=== PATIENT | female | born 1930 | race Caucasian/White ===

== ENCOUNTER 2017-09-17 02:22 | Inpatient (IN) ==
[2017-09-17] MEDS ORDERED: Ondansetron 4 MG/2 ML VIAL IVP ONE (03:31)
[2017-09-17] MEDS ORDERED: 0.9 % Sodium Chloride 1,000 ML IVC ONE (03:31)
--- NOTE | 2017-09-17 03:33 | Emergency Department Note ---
Disposition Clinical Impression: Nausea, Small bowel obstruction Constipation Qualifiers: Constipation type: unspecified constipation type Qualified Code(s): K59.00 - Constipation, unspecified Disposition: Admitted As Inpatient Condition: Fair Referrals: Virgil Schneider DO [Primary Care Provider] - Forms: ED Satisfaction Letter, Work/School Release Time of Disposition: 05:26 General Adult HPI - General Chief complaint: ED Abdominal Pain Stated complaint: Abdominal Pain Time Seen by Provider: 09/17/17 02:47 Source: patient, family Limitations: no limitations Nursing Notes Reviewed: Yes Vital Signs Reviewed: Yes - History of Present Illness HPI Narrative: Patient is an 86-year-old female that presents emergency department for abdominal pain, nausea and constipation. Patient states that she was trying to have a bowel movement this evening and used straining and developed worsening of her abdominal pain. Patient also states that she has been having urinary incontinence. Family states that she was seen for the similar complaints on and at outside facility. States that once she had a bowel movement her symptoms had improved. Family states that the urinary incontinence is not new that this is been ongoing for months. They deny any blood in the stool. He also states that she has been very anxious lately due to the urinary incontinence and constipation. Pain Scale: 8 - Related Data Allergies Allergy/AdvReac Type Severity Reaction Status Date / Time Sulfa (Sulfonamide Allergy See Verified 09/17/17 02:24 Antibiotics) Comments All systems ED: reviewed and negative except as stated. Constitutional: Denies: fever, chills Cardiovascular: Denies: chest pain Respiratory: Denies: dyspnea Gastrointestinal: Reports: abdominal pain, nausea, constipation. Denies: vomiting Genitourinary: Reports: other (Urinary incontinence) Past Medical History - Past Medical History Medical history: Reports: asthma, CVA, diabetes, hyperlipidemia, hypertension Psychiatric history: Reports: no psych history - Social History Smoking Status: Never smoker Smokeless Tobacco Status: No Alcohol use: Reports: none Drug use: Reports: none Physical Exam - General Limitations: no limitations General appearance: alert, in no apparent distress - Head Head exam: atraumatic, normocephalic - Eye Eye exam: Present: normal appearance, EOMI - Neck Neck exam: Present: normal inspection, full ROM, trachea midline - Respiratory Respiratory exam: Present: normal lung sounds bilaterally. Absent: respiratory distress, wheezes - Cardiovascular Cardiovascular exam: Present: regular rate, normal rhythm, normal heart sounds, +S1, +S2 - Abdominal Exam Abdominal exam: Present: soft, tenderness (Right-sided), normal bowel sounds - Neurological Exam Neurological exam: Present: alert, oriented X3 - Psychiatric Psychiatric exam: Present: normal affect, normal mood - Skin Skin exam: Present: warm, dry, intact Course - Reevaluation(s) Reevaluation #1: I called and spoke with the on-call surgeon Dr. Delgadillo and she has accepted the patient to their service. The patient will be admitted to the hospital at this time for further evaluation and management of her small bowel injection. Dr. Delgadillo did request an NG tube be placed prior to being admitted to the hospital. This will be done in the emergency department prior to admission. Time: 05:23 Vital Signs Temperature 97.6 F 09/17/17 02:24 Pulse Rate 95 09/17/17 02:24 Respiratory Rate 18 09/17/17 02:24 Blood Pressure 181/71 09/17/17 02:24 O2 Sat by Pulse Oximetry 95 09/17/17 02:24 Temperature 97.6 F 09/17/17 02:24 Pulse Rate 77 09/17/17 04:52 Respiratory Rate 18 09/17/17 04:52 Blood Pressure 155/64 09/17/17 04:52 O2 Sat by Pulse Oximetry 97 09/17/17 04:52 Oxygen Delivery Oxygen Delivery Room Air Medical Decision Making - [facility] Narrative Medical decision making narrative: Due to the patient presenting with abdominal pain and possible constipation we will obtain a CBC, BMP, urinalysis and a CT scan of the abdomen and pelvis. CT scan showed a small bowel structure with a transition point in the right lower quadrant. Urinalysis did not show any infection. Patient did have a mild anemia of 10.9. Remainder of her laboratory testing was unremarkable. I called and spoke with the on-call surgeon she has accepted the patient to their service with the request of a NG tube being placed. This will be done prior to the patient being admitted. I informed the patient and family member that there was a small bowel obstruction and the patient will need to be admitted for further evaluation and management. They were in agreement with this. Patient will be admitted to the hospital at this time. Patient will be given 1mg of ativan for the NG being placed. - Medical Records Medical records reviewed: Yes I reviewed the patient's medical records. - Lab Data Lab results reviewed: Yes I reviewed the patient's lab results. Result diagrams: 09/17/17 04:02 09/17/17 04:02 Lab Results 09/17/17 09/17/17 09/17/17 Range/Units 04:02 04:02 04:50 WBC 5.9 (4.3-11.1) K/mcL RBC 3.60 L (3.82-4.97) M/mcL Hgb 10.9 L (11.5-15.4) g/dL Hct 33.7 L (35.3-44.9) % MCV 93.6 (83.0-100.0) fL MCH 30.3 (28.0-33.3) pg MCHC 32.3 (31.6-35.5) g/dL RDW 14.8 H (11.5-14.5) % Plt Count 174 (140-400) K/mcL MPV 10.4 (9.4-12.4) fL Immature Gran % 0.3 (0-4) % Seg Neutrophils % 67.9 % Lymphocytes % 22.3 % Monocytes % 7.3 % Eosinophils % 1.7 % Basophils % 0.5 % Neutrophils # 4.0 (1.6-8.9) K/mcL Lymphocytes # 1.3 (0.6-4.6) K/mcL Monocytes # 0.4 (0.0-1.3) K/mcL Eosinophils # 0.1 (0.0-0.6) K/mcL Basophils # 0.0 (0.0-0.2) K/mcL Sodium 139 (136-145) mEq/L Potassium 4.1 (3.5-5.1) mEq/L Chloride 105 (98-107) mEq/L Carbon Dioxide 24 (23-29) mEq/L BUN 23 (8-23) mg/dL Creatinine 0.86 (0.60-1.20) mg/dL Est GFR ( Amer) > 60 (> 60) Est GFR (Non-Af Amer) > 60 (> 60) BUN/Creatinine Ratio 27 H (6-26) Glucose 141 H (70-105) mg/dL Calculated Osmolality 294 (280-300) Calcium 9.0 (8.6-10.3) mg/dL Urine Color Yellow (Yellow) Urine Clarity Clear (Clear) Urine pH 7.0 (5.0-8.0) pH Units Ur Specific [place] 1.010 (1.010-1.025) Urine Protein Negative (Neg-Trace) mg/dL Urine Glucose (UA) Normal (Normal) mg/dL Urine Ketones Negative (Negative) mg/dL Urine Blood Negative (Negative) Urine Nitrite Negative (Negative) Urine Bilirubin Negative (Negative) Urine Urobilinogen Normal (Normal) mg/dL Ur Leukocyte Esterase Negative (Negative) Ur Culture Indicated? NO (NO) - Radiology Data Radiology results reviewed: Yes I reviewed the patient's radiology results. Abdomen/Pelvis CT 09/17/17 03:29 IMPRESSION: Findings of a mechanical small bowel obstruction with suspected transition point in the right lower quadrant. D/ / Rick Belcher / Rick Belcher Interpreting Provider: Rick Belcher
[2017-09-17 04:21] LABS: Basophils % 0.5 %; Eosinophils # 0.1 K/mcL (0.0-0.6); Eosinophils % 1.7 %; Hematocrit 33.7 % (35.3-44.9); Hemoglobin 10.9 g/dL (11.5-15.4); Immature Granulocytes % 0.3 % (0-4); Lymphocytes # 1.3 K/mcL (0.6-4.6); Lymphocytes % 22.3 %; Mean Corpuscular HGB Conc 32.3 g/dL (31.6-35.5); Mean Corpuscular Hemoglobin 30.3 pg (28.0-33.3); Mean Corpuscular Volume 93.6 fL (83.0-100.0); Mean Platelet Volume 10.4 fL (9.4-12.4); Monocytes # 0.4 K/mcL (0.0-1.3); Monocytes % 7.3 %; Platelet Count 174 K/mcL (140-400); Red Cell Distribution Width 14.8 % (11.5-14.5); Segmented Neutrophils % 67.9 %
[2017-09-17 04:39] LABS: BUN/Creatinine Ratio 27 (6-26); Blood Urea Nitrogen 23 mg/dL (8-23); Carbon Dioxide 24 mEq/L (23-29); Chloride 105 mEq/L (98-107); Glucose 141 mg/dL (70-105); Osmolality,Calculated 294 (280-300); Potassium 4.1 mEq/L (3.5-5.1); Sodium 139 mEq/L (136-145); eGFR For African Americans > 60 (> 60); eGFR For Non-African Americans > 60 (> 60)
[2017-09-17 05:02] LABS: Bilirubin,Urine Negative (Negative); Blood,Urine Negative (Negative); Clarity,Urine Clear (Clear); Color,Urine Yellow (Yellow); Glucose,Urine (UA) Normal (Normal); Ketones,Urine Negative (Negative); Leukocyte Esterase,Urine Negative (Negative); Nitrite,Urine Negative (Negative); Protein,Urine Negative (Neg-Trace); Urobilinogen,Urine Normal (Normal)
--- NOTE | 2017-09-17 05:23 | Emergency Department Note ---
Disposition Clinical Impression: Nausea, Small bowel obstruction Constipation Qualifiers: Constipation type: other constipation type Qualified Code(s): K59.09 - Other constipation Disposition: Admitted As Inpatient Condition: Serious General Adult HPI - General Chief complaint: ED Abdominal Pain Stated complaint: Abdominal Pain Time Seen by Provider: 09/17/17 02:47 Source: patient, family Limitations: no limitations - History of Present Illness Pain Scale: 8 - Related Data Home Medications Medication Instructions Recorded Confirmed Amlodipine Besylate 10 mg PO DAILY 09/17/17 09/17/17 Buspirone HCl [Buspar] 5 mg PO TID 09/17/17 09/17/17 Clopidogrel [Plavix] 75 mg PO DAILY 09/17/17 09/17/17 OxyCODONE/APAP 7.5/325 [Percocet 1 tab PO Q6HR PRN 09/17/17 09/17/17 7.5/325 MG] Oxybutynin Chloride [Ditropan Xl] 10 mg PO DAILY 09/17/17 09/17/17 Pioglitazone HCl [Actos] 45 mg PO DAILY 09/17/17 09/17/17 Simvastatin [Zocor] 20 mg PO HS 09/17/17 09/17/17 metFORMIN [Glucophage] 500 mg PO DAILY 09/17/17 09/17/17 Allergies Allergy/AdvReac Type Severity Reaction Status Date / Time Sulfa (Sulfonamide Allergy See Verified 09/17/17 02:24 Antibiotics) Comments Constitutional: Denies: fever, chills Cardiovascular: Denies: chest pain Respiratory: Denies: dyspnea Gastrointestinal: Reports: abdominal pain, nausea, constipation. Denies: vomiting Genitourinary: Reports: other (Urinary incontinence) Past Medical History - Past Medical History Medical history: Reports: asthma, CVA, diabetes, hyperlipidemia, hypertension Psychiatric history: Reports: no psych history - Social History Smoking Status: Never smoker Smokeless Tobacco Status: No Alcohol use: Reports: none Drug use: Reports: none Physical Exam - General Limitations: no limitations General appearance: alert, in no apparent distress Course Vital Signs Temperature 97.6 F 09/17/17 02:24 Pulse Rate 95 09/17/17 02:24 Respiratory Rate 18 09/17/17 02:24 Blood Pressure 181/71 09/17/17 02:24 O2 Sat by Pulse Oximetry 95 05/08/18 02:24 Temperature 97.7 F 09/17/17 14:30 Pulse Rate 96 09/17/17 14:30 Respiratory Rate 16 09/17/17 14:30 Blood Pressure 147/84 09/17/17 14:30 O2 Sat by Pulse Oximetry 95 09/17/17 14:30 Oxygen Delivery Oxygen Delivery Room Air Medical Decision Making - Lab Data Result diagrams: 09/17/17 04:02 09/17/17 04:02 Lab Results 09/17/17 09/17/17 09/17/17 Range/Units 04:02 04:02 04:50 WBC 5.9 (4.3-11.1) K/mcL RBC 3.60 L (3.82-4.97) M/mcL Hgb 10.9 L (11.5-15.4) g/dL Hct 33.7 L (35.3-44.9) % MCV 93.6 (83.0-100.0) fL MCH 30.3 (28.0-33.3) pg MCHC 32.3 (31.6-35.5) g/dL RDW 14.8 H (11.5-14.5) % Plt Count 174 (140-400) K/mcL MPV 10.4 (9.4-12.4) fL Immature Gran % 0.3 (0-4) % Seg Neutrophils % 67.9 % Lymphocytes % 22.3 % Monocytes % 7.3 % Eosinophils % 1.7 % Basophils % 0.5 % Neutrophils # 4.0 (1.6-8.9) K/mcL Lymphocytes # 1.3 (0.6-4.6) K/mcL Monocytes # 0.4 (0.0-1.3) K/mcL Eosinophils # 0.1 (0.0-0.6) K/mcL Basophils # 0.0 (0.0-0.2) K/mcL Sodium 139 (136-145) mEq/L Potassium 4.1 (3.5-5.1) mEq/L Chloride 105 (98-107) mEq/L Carbon Dioxide 24 (23-29) mEq/L BUN 23 (8-23) mg/dL Creatinine 0.86 (0.60-1.20) mg/dL Est GFR ( Amer) > 60 (> 60) Est GFR (Non-Af Amer) > 60 (> 60) BUN/Creatinine Ratio 27 H (6-26) Glucose 141 H (70-105) mg/dL Calculated Osmolality 294 (280-300) Calcium 9.0 (8.6-10.3) mg/dL Urine Color Yellow (Yellow) Urine Clarity Clear (Clear) Urine pH 7.0 (5.0-8.0) pH Units Ur Specific [place] 1.010 (1.010-1.025) Urine Protein Negative (Neg-Trace) mg/dL Urine Glucose (UA) Normal (Normal) mg/dL Urine Ketones Negative (Negative) mg/dL Urine Blood Negative (Negative) Urine Nitrite Negative (Negative) Urine Bilirubin Negative (Negative) Urine Urobilinogen Normal (Normal) mg/dL Ur Leukocyte Esterase Negative (Negative) Ur Culture Indicated? NO (NO) Attestation Statement - Attestation Attestation: I examined this patient and my medical decision-making was reviewed with the Resident Physician. I agree with the documented findings, disposition and treatment plan as described except to the extent set forth below. Findings consistent with small bowel obstruction. We will place an NG tube. Admit to surgical services. Patient non-peritoneal at time of admission.
[2017-09-17] MEDS ORDERED: *HR* LORazepam 2 MG/ML VIAL IVP ONE (05:29)
[2017-09-17] MEDS ORDERED: Tetracaine/Benzocaine/Butamben 200MG/SPRAY (100SPY/BOT) MM ONE (05:31)
[2017-09-17] MEDS ORDERED: Naloxone 0.4 MG/ML INJ IVP PRN (07:41)
[2017-09-17] MEDS ORDERED: *HR* Metoprolol 5 MG/5 ML VIAL IVP PRN (07:41)
[2017-09-17] MEDS ORDERED: Ondansetron 4 MG/2 ML VIAL IVP PRN (07:41)
[2017-09-17] MEDS ORDERED: D5% in Water 1,000 ML IVC PRN (07:44)
[2017-09-17] MEDS ORDERED: Dextrose Gel 15 GM/37.5 ML TUBE PO PRN ×2 (07:44)
[2017-09-17] MEDS ORDERED: *HR* Dextrose 50 % in Water (Syg) 50 ML SYRINGE IVP PRN (07:44)
[2017-09-17] MEDS ORDERED: *HR* Metoprolol 5 MG/5 ML VIAL IVP SCH (07:45)
[2017-09-17] MEDS ORDERED: 0.9 % Sodium Chloride 1,000 ML IVC SCH (07:45)
--- NOTE | 2017-09-17 08:19 | General Surg History&Physical ---
<Umberto Kim - Last Filed: 09/17/17 16:51> Date of Encounter: 09/17/17 Time of Encounter: 08:13 Assessment and Plan (1) Small bowel obstruction Status: Acute Overall, patient appears relatively comparable and has overall benign abdominal exam. CT-abdomen demonstrates fecalization of small bowel, and a transition point with proximal SB distention. DDx includes adynamic ileus, mechanical SBO, primarily drug-induced fecal obstruction - NG tube in place with low pressure wall suction - NPO for time being - Antiemetics PRN - Analgesia PRN - qAM Lytes - Will likely need SB follow through - Colonoscopy may be warranted at some point of IP stay as well (2) Constipation Status: Acute Suspected drug induced vs. primary SBO. Plans as above. Qualifiers: Qualified Code(s): K59.00 - Constipation, unspecified (3) Urinary incontinence Status: Acute Given subacute nature and completely normal UA, doubt UTI. Likely related to distention secondary to SBO. Associated plans as above. Qualifiers: Urinary Incontinence type: unspecified incontinence Qualified Code(s): R32 - Unspecified urinary incontinence (4) Diabetes mellitus Status: Acute Accuchecks q6hr & LD-SSI Qualifiers: Diabetes mellitus type: type 2 Diabetes mellitus usp insulin use: without usp use Diabetes mellitus complication status: with unspecified complications Qualified Code(s): E11.8 - Type 2 diabetes mellitus with unspecified complications (5) Hypertension Status: Acute Monitor; Metoprolol 5mg PRN Qualifiers: Hypertension type: unspecified Qualified Code(s): I10 - Essential (primary ) hypertension (6) Chronic pain Status: Acute Routinely takes Oxycodone 7.5mg without concurrent use of stool softener or laxitive. No history of associated constipation. - Oxycodone oral conc 5mg SL q4h PRN & Morphine 5mg SL PRN Qualifiers: Chronic pain type: other chronic pain Qualified Code(s): G89.29 - Other chronic pain (7) DVT prophylaxis Status: Acute SCDs History of Present Illness Chief complaint: Constipation & Nausea HPI: Ms. Prabhakar is a 86 year old female with stated past medical history of HLP, HTN , DM 2 [id number], and chronic pain on regular opioid analgesia. Negative surgical history. Patient presented to the ED for worsening symptoms of constipation, bloating, nausea, and urinary incontinence all which have collectively been going on for about the past month and a half. Patient states has to strain to pass stools which have been dry and hard in quality. Within same time period, patient states has had urinary incontinence with no other urinary symptoms. Patient states provoking change was a worsening of pain yesterday while trying to have a bowel movement. Patient denies any vomiting, diarrhea, hematochezia, melena, hematuria, or dysuria. Patient denies any known historical difficulties with constipation despite chronic pain med use. Patient describes acute sensation as a diffuse pain/bloating discomfort the poorly localizes. Pain has not been focal, migratory, nor radiating. Abdominal discomfort is quantified as moderate. No associated anorexia. Of note, patient has no history of intra-abdominal surgeries and has never had a colonoscopy. No history of hypercoagulopathy, thromboembolic disease, or other bowel obstructions. Denies known history of cancer. Past Med Surg Social Fam HX - Past Medical History Attestation: Yes The following information was validated with the patient. Source: patient, obtained from family Medical history: asthma, CVA, diabetes, hyperlipidemia, hypertension Psychiatric history: no psych history, anxiety - Past Surgical History Surgical History: no surgical history - Social History Smoking Status: Never smoker Smokeless Tobacco Status: No Alcohol use: none Drug use: none - Family History Mother Adopted: [place]: Ingrid Travis Age: 71 Cause of : 71 Hx Family Cardiac Disorders: Yes Father History Unknown: Yes Adopted: [place]: Bhanu Merrill Cause of : Alcoholism Medications and Allergies Amlodipine Besylate 10 mg PO DAILY 09/17/17 [History] Buspirone HCl [Buspar] 5 mg PO TID 09/17/17 [History] Clopidogrel [Plavix] 75 mg PO DAILY 09/17/17 [History] OxyCODONE/APAP 7.5/325 [Percocet 7.5/325 MG] 1 tab PO Q6HR PRN 09/17/17 [History ] Oxybutynin Chloride [Ditropan Xl] 10 mg PO DAILY 09/17/17 [History] Pioglitazone HCl [Actos] 45 mg PO DAILY 09/17/17 [History] Simvastatin [Zocor] 20 mg PO HS 09/17/17 [History] metFORMIN [Glucophage] 500 mg PO DAILY 09/17/17 [History] 3 Allergy/AdvReac Type Severity Reaction Status Date / Time Sulfa (Sulfonamide Allergy See Verified 09/17/17 02:24 Antibiotics) Comments Review of Systems All systems PM: Denies notable weight change, fevers, chills, sweats, headache, visual disturbances, confusion, neck stiffness, chest pain, palpitations, cough, shortness of breath, vomiting, or pedal edema. General Surgery Exam Initial Vital Signs Temp Pulse Resp BP Pulse Ox 97.6 F 95 18 181/71 95 09/17/17 02:24 09/17/17 02:24 09/17/17 02:24 09/17/17 02:24 09/17/17 02:24 VITAL SIGNS: Reviewed. See [facility] GENERAL: alert and comfortably supine in bed. NG tube in place. HEENT: Normocephalic, PER, EOMi, oropharynx pink/moist, no JVD noted CV: RRR, no murmurs or gallops, no JVD RESPIRATORY: CTAB without wheezes, rales, or rhonchi ABD: hypoactive bowel sounds, soft, mildly tender, no rebound/guarding/rigidity , no peritoneal signs EXTREMITY: grossly normal motor function, no pedal edema, peripheral pulses 2+ b /l NEUROLOGIC EXAM: AOx3, obeys commands, no speech deficits. PSYCHIATRIC: normal mood and affect SKIN: no gross lesions, rashes, or skin changes Results - Labs 09/17/17 04:02 09/17/17 04:02 Abnormal lab results RBC 3.60 M/mcL (3.82-4.97) L 09/17/17 04:02 Hgb 10.9 g/dL (11.5-15.4) L 09/17/17 04:02 Hct 33.7 % (35.3-44.9) L 09/17/17 04:02 RDW 14.8 % (11.5-14.5) H 09/17/17 04:02 BUN/Creatinine Ratio 27 (6-26) H 09/17/17 04:02 Glucose 141 mg/dL (70-105) H 09/17/17 04:02 All other labs normal. <Irene Delgadillo L - Last Filed: 09/17/17 17:46> Date of Encounter: 09/17/17 Time of Encounter: 14:30 Assessment and Plan (1) Small bowel obstruction due to adhesions Status: Acute The assessment and plan as outlined above was discussed with the patient and/or family members who expressed understanding and agreement. All questions were answered. discussed with patient, her daughter and granddaughter that patient has a small bowel obstruction. we discussed conservative therapy for small bowel obstruction and potential for surgery to alleviate obstruction if conservative therapy fails. explained what an ngt was and what it accomplishes. daughter is upset that patient went for a period of time from when she was at home to when recieved orders for narcoticson the floor. Patient is upset and perseverates, stating she cannot take the ngt and wants it removed. They were offered viscous lidocaine and chloraseptic to help with the ngt discomfort and patients daughter then became upset that patient did not already have this offered. we discussed patients worsening constipation and that she has never had a colonoscopy and I asked patient if I could do a rectal exam. Patient stated I could do a rectal exam if her ngt was removed. Daughter then offered patient to have her ngt removed and do rectal. At persistence despite telling them this was not appropriate medical practice or our recommendation at the insistence of the patient and her daughter her ngt was removed. Patient then refused rectal exam.Daughter kept asking what would happen if she took patient home now. We discussed possible complications of taking her home with a persistent small bowel obstruction and told her she would be taking her against medical advice and daughter expressed that she understood that had Johnson, 3A nurse medical care manager speak with patient and her daughter regarding family complaints for their stay thus far. Family decided to leave [place] but refused to sign the paper. patient has chronic pain and has been treated with po narcotics (SL) and pain is well controlled, patient is not complaining of any pain (abdominal or otherwise) currently, only the ngt (2) Chronic pain Status: Chronic The assessment and plan as outlined above was discussed with the patient and/or family members who expressed understanding and agreement. All questions were answered. Qualifiers: Chronic pain type: other chronic pain Qualified Code(s): G89.29 - Other chronic pain (3) Constipation Status: Chronic The assessment and plan as outlined above was discussed with the patient and/or family members who expressed understanding and agreement. All questions were answered. Qualifiers: Constipation type: unspecified constipation type Qualified Code(s): K59.00 - Constipation, unspecified (4) Diabetes mellitus Status: Chronic The assessment and plan as outlined above was discussed with the patient and/or family members who expressed understanding and agreement. All questions were answered. 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 All questions were answered. Qualifiers: Hypertension type: essential hypertension Qualified Code(s): I10 - Essential (primary) hypertension History of Present Illness HPI: Ms. Prabhakar is a 86 year old female who for some time (unable to determine how long) has been having abdominal distention and pain. Prior to presenting to the ED patient had nausea and emesis. She has been having increasing constipation for several months now, patient has never had a colonoscopy. Patient has never had any abdominal surgery. She has had (she thinks) flatus today. CT scan shows sbo with transition point. Patient takes chronic pain medication for DJD/DDD and chronic back pain, she takes anxiety medication as well. She had some ativan earlier and is having some confusion at this time.Daughter and granddaughter are present in room with patient. Pt is complaining of the ngt bothering her throat and keeps stating she wants it removed. Past Med Surg Social Fam HX - Past Medical History Source: patient Medical history: asthma, diabetes, other (chronic pain) Review of Systems All systems PM: reviewed and no additional remarkable complaints except as stated All systems PM: The remainder of the systems were reviewed and are negative General Surgery Exam Initial Vital Signs Temp Pulse Resp BP Pulse Ox 97.6 F 95 18 181/71 95 09/17/17 02:24 09/17/17 02:24 09/17/17 02:24 09/17/17 02:24 09/17/17 02:24 - General physical appearance well developed, well nourished, no distress - Eyes PERRL, normal ocular movement - ENT normal mucosa, normocephalic - Neck no masses - Respiratory normal expansion - Cardiovascular Cardiovascular exam: Present: RRR - Abdomen Abdomen general surgery: Present: soft, non tender, distended. Absent: guarding , rebound - Rectum Rectum: Present: other (patient refused rectal exam) - Neurologic Present: CN 2-12 grossly intact - Musculoskeletal Present: normal posture - Psychiatric Psychiatric general surgery: Present: oriented to person, other (confused) Results - Labs 09/17/17 04:02 09/17/17 04:02 Abnormal lab results RBC 3.60 M/mcL (3.82-4.97) L 09/17/17 04:02 Hgb 10.9 g/dL (11.5-15.4) L 09/17/17 04:02 Hct 33.7 % (35.3-44.9) L 09/17/17 04:02 RDW 14.8 % (11.5-14.5) H 09/17/17 04:02 BUN/Creatinine Ratio 27 (6-26) H 09/17/17 04:02 Glucose 141 mg/dL (70-105) H 09/17/17 04:02 All other labs normal. - Imaging CT scan - abdomen: report reviewed, image reviewed CT scan - pelvis: report reviewed, image reviewed - Attending Attestation I examined this patient and my medical decision-making was reviewed with the Resident Physician. I agree with the documented findings, disposition and treatment plan as described except to the extent set forth below.
[2017-09-17] MEDS ORDERED: OXYCODONE Oral CONC 10 MG/0.5 ML ORAL.SYG SL ONE ×2 (08:56→09:30)
[2017-09-17] MEDS ORDERED: Insulin LISPRO 300 UNITS/3 ML VIAL SQ SCH (12:00)
[2017-09-17] MEDS ORDERED: Morphine Oral CONC 5 MG/0.25 ML ORAL.SYG PO PRN (12:14)
[2017-09-17] MEDS ORDERED: OXYCODONE Oral CONC 10 MG/0.5 ML ORAL.SYG SL PRN (12:14)
[2017-09-17] MEDS ORDERED: *HR* LORazepam 2 MG/ML VIAL IVP PRN (12:16)
[2017-09-17] MEDS ORDERED: MORPHINE SUL Oral CONC 10 MG/0.5 ML ORAL.SYG PO PRN (13:00)
[2017-09-17 14:39] VITALS: BP 147/84
--- NOTE | 2017-09-17 16:53 | Discharge Summary ---
<Umberto Kim - Last Filed: 09/17/17 17:20> Orders not resulted at time of discharge: Pending orders 09/18/17 04:00 Basic Metabolic Panel AM 0400 Complete Blood Count [HEME] AM 0400 Magnesium AM 0400 Phosphorous AM 0400 Date of Encounter: 09/17/17 Time of Encounter: 16:30 - Discharge Diagnosis (1) Small bowel obstruction Priority: Primary Status: Acute (2) Constipation Priority: Primary Status: Acute Qualifiers: Constipation type: unspecified constipation type Qualified Code(s): K59.00 - Constipation, unspecified (3) Urinary incontinence Priority: Primary Status: Acute Qualifiers: Urinary Incontinence type: unspecified incontinence Qualified Code(s): R32 - Unspecified urinary incontinence (4) Diabetes mellitus Priority: Secondary Status: Acute Qualifiers: Diabetes mellitus type: type 2 Diabetes mellitus filler leaf cutter long insulin use: without filler leaf cutter long use Diabetes mellitus complication status: with unspecified complications Qualified Code(s): E11.8 - Type 2 diabetes mellitus with unspecified complications (5) Hypertension Priority: Secondary Status: Acute Qualifiers: Hypertension type: unspecified Qualified Code(s): I10 - Essential (primary ) hypertension (6) Chronic pain Priority: Secondary Status: Acute Qualifiers: Chronic pain type: other chronic pain Qualified Code(s): G89.29 - Other chronic pain General Surgery Exam Initial Vital Signs Temp Pulse Resp BP Pulse Ox 97.6 F 95 18 181/71 95 09/17/17 02:24 09/17/17 02:24 09/17/17 02:24 09/17/17 02:24 09/17/17 02:24 VITAL SIGNS: Reviewed. See [facility] GENERAL: alert and comfortably supine in bed. NG tube in place; removed prior to discharge. HEENT: Normocephalic, PER, EOMi, oropharynx pink/moist, no JVD noted CV: RRR, no murmurs or gallops, no JVD RESPIRATORY: CTAB without wheezes, rales, or rhonchi ABD: hypoactive bowel sounds, soft, mildly tender, no rebound/guarding/rigidity , no peritoneal signs EXTREMITY: grossly normal motor function, no pedal edema, peripheral pulses 2+ b /l NEUROLOGIC EXAM: AOx3, obeys commands, no speech deficits. PSYCHIATRIC: restless upon discharge and upset about discomfort of NG tube SKIN: no gross lesions, rashes, or skin changes - Hospital Course Hospital course: Ms. Prabhakar is a 86 year old female with history of HLP, HTN, DM 2 non-insulin- dependent, and chronic pain on regular opioid analgesia. Patient was admitted with ongoing constipation, incontinence, and worsening generalized abdominal pain. Initial workup revealed small bowel obstruction with dilated loops of small bowel and small bowel fecalization on CT. Patient was admitted overnight with NG tube placed and given IV fluids as well as NPO status for bowel rest. Patient does have history of chronic pain of her back and lower legs, particularly left leg, and she routinely takes PO Percocet 7.5 mg 4 times daily. Patient was complaining of pain this morning in advance of the presence of surgery team. She was ultimately given sublingual oxycodone as well as PRN morphine and Ativan for pain and anxiety. Patient continued to have difficulty tolerating her NG tube, insistent on its removal. Ultimately, surgical team convened in the room including myself, Dr. Delgadillo, and Catia Lugo CNP; we discussed with patient importance of bowel rest as well as NG tube to decompress the G.I. tract. Patient had several family members present including her daughter, granddaughter, and a male relative present who all attempted to convince patient to stay for further medical management. NG tube removed at patient's insistence despite recommendations to the contrary. I revisited the risks associated with leaving at this point with the patient and she initially opted to stay, however, later told nursing she was going to be leaving. I had yet another lengthy discussion with patient regarding benefits of staying and having bowel rest with NG tube decompression as well as risks of complications without proper intervention of her small bowel obstruction; patient was still insistent on leaving the hospital. Patient and family present expressed understanding of risks of leaving as well as benefits of staying. Thoroughly discussed return precautions with patient and her daughter prior to departure. Ultimately, I strongly and repeatedly recommended that she stay for further medical management, however, patient opted to leave the hospital despite this. Patient signed an AMA form documenting her knowledge and awareness of potential complications of leaving AMA; patient left the floor with her daughter shortly after signing. - Time Spent with Patient Total time spent providing and/or coordinating discharge services: - Discharge Medications Home Medications: Amlodipine Besylate 10 mg PO DAILY 09/17/17 [History] Buspirone HCl [Buspar] 5 mg PO TID 09/17/17 [History] Clopidogrel [Plavix] 75 mg PO DAILY 09/17/17 [History] OxyCODONE/APAP 7.5/325 [Percocet 7.5/325 MG] 1 tab PO Q6HR PRN 09/17/17 [History ] Oxybutynin Chloride [Ditropan Xl] 10 mg PO DAILY 09/17/17 [History] Pioglitazone HCl [Actos] 45 mg PO DAILY 09/17/17 [History] Simvastatin [Zocor] 20 mg PO HS 09/17/17 [History] metFORMIN [Glucophage] 500 mg PO DAILY 09/17/17 [History] Allergies/Adverse Reactions: 3 Allergy/AdvReac Type Severity Reaction Status Date / Time Sulfa (Sulfonamide Allergy See Verified 09/17/17 02:24 Antibiotics) Comments Date of admission: 09/17/17 07:41 Primary care physician: Virgil Schneider Discharging clinician: Umberto Kim Anticipated date of discharge: 09/17/17 - Impressions ITS Impressions KUB X-Ray 09/17/17 11:35 IMPRESSION: The gastric drain terminates over the gastric body. D/ / Landen Cole MD / Landen Cole MD Interpreting Provider: Landen Cole MD - Patient Status Disposition: Left Against Medical Advice Condition: Serious Functional capacity at discharge: uses cane/walker Overall status at discharge: patient is not back to baseline - Discharge Instructions Follow Up With: Virgil Schneider DO [Primary Care Provider] - <Irene Delgadillo - Last Filed: 09/17/17 17:48> Date of Encounter: 09/17/17 - Discharge Diagnosis (1) Small bowel obstruction due to adhesions Priority: Primary Status: Acute (2) Chronic pain Priority: Secondary Status: Chronic Qualifiers: Chronic pain type: other chronic pain Qualified Code(s): G89.29 - Other chronic pain (3) Constipation Priority: Secondary Status: Chronic Qualifiers: Constipation type: unspecified constipation type Qualified Code(s): K59.00 - Constipation, unspecified (4) Diabetes mellitus Priority: Secondary Status: Chronic Qualifiers: Diabetes mellitus type: type 2 Diabetes mellitus jail insulin use: without filler leaf cutter long use Diabetes mellitus complication status: with unspecified complications Qualified Code(s): E11.8 - Type 2 diabetes mellitus with unspecified complications (5) Hypertension Priority: Secondary Status: Chronic Qualifiers: Hypertension type: essential hypertension Qualified Code(s): I10 - Essential (primary) hypertension General Surgery Exam Initial Vital Signs Temp Pulse Resp BP Pulse Ox 97.6 F 95 18 181/71 95 09/17/17 02:24 09/17/17 02:24 09/17/17 02:24 09/17/17 02:24 09/17/17 02:24 - General physical appearance well developed, well nourished, no distress - Eyes PERRL, normal ocular movement - ENT normal mucosa - Neck trachea midline - Respiratory normal expansion, normal respiratory effort - Cardiovascular Cardiovascular exam: Present: RRR - Abdomen Abdomen general surgery: Present: bowel sounds present, soft, non tender, distended. Absent: guarding, rebound - Integumentary Integumentary general surgery: Present: warm and dry - Neurologic Present: CN 2-12 grossly intact, confused - Musculoskeletal Present: normal posture - Psychiatric Psychiatric general surgery: Present: oriented to person - Hospital Course Hospital course: Ms. Prabhakar is a 86 year old female - Time Spent with Patient Total time spent providing and/or coordinating discharge services: Date of admission: 09/17/17 07:41 Primary care physician: Virgil Schneider - Impressions ITS Impressions KUB X-Ray 09/17/17 11:35 IMPRESSION: The gastric drain terminates over the gastric body. D/ / Landen Cole MD / Landen Cole MD Interpreting Provider: Landen Cole MD - Attending Attestation I examined this patient and my medical decision-making was reviewed with the Resident Physician. I agree with the documented findings, disposition and treatment plan as described except to the extent set forth below.
[2017-09-17] MEDS ORDERED: Famotidine 20 MG/2 ML VIAL IVP SCH (18:00)
[2017-09-17] MEDS ORDERED: *HR* Heparin 5,000 UNIT/ML VIAL SQ SCH (18:00)
== END 2017-09-17 16:43 | disposition left against medical advice (07) | DRG 390 ==
LOC: 3ANU 02:22 → EMEROO 02:22 → 3ANU 06:04
PROVIDERS: ADMIT Surgery; ATTEND Surgery